=== PATIENT | female | born 1945 | race Caucasian/White ===

== ENCOUNTER 2019-01-17 09:58 | Inpatient (IN) ==
[2019-01-17] MEDS ORDERED: ONDANSETRON 4 MG/2 ML VIAL IV PRN (21:21)
[2019-01-17] MEDS ORDERED: GLUCAGON 1 MG VIAL IM PRN ×3 (21:21→21:35)
[2019-01-17] MEDS ORDERED: DEXTROSE 50% 25 GM/50 ML VIAL IV PRN ×3 (21:21→21:35)
[2019-01-17] MEDS ORDERED: tiZANidine 4 MG TABLET PO PRN (21:33)
[2019-01-17 22:07] LABS: Basophils % 0.5 % (0.0-0.8); Eosinophils # 0.2 10*3/uL (0.0-0.87); Eosinophils % 1.9 % (0.00-10.9); Hematocrit 39.2 VOL% (35.7-47.0); Hemoglobin 12.9 GM/DL (12.0-16.0); Immature Granulocytes % 0.4 %; Immature Granulocytes Absolute 0.03 #; Lymphocytes # 3.7 10*3/uL (1.4-4.0); Lymphocytes % 43.4 % (21.3-54.2); Mean Corpuscular HGB Conc 32.9 GM/DL (32-36); Mean Corpuscular Volume 89.1 FL (87-102); Mean Platelet Volume 9.6 FL (9.6-12.0); Monocytes % 6.3 % (1.7-12.7); Neutrophils % 47.5 % (38.7-73.9); Platelet Count 233 T/CUMM (130-400); Red Cell Distribution Width 14.2 % (9.3-17.3); White Blood Count 8.6 T/CUMM (4-12)
[2019-01-17] MEDS: PIPERACILLIN/TAZOBACTAM 3,375 MG in SODIUM CHLORIDE 0.9% 100 ML IV SCH (22:34)
[2019-01-17 22:39] LABS: Albumin 3.8 G/DL (3.4-5.0); Bilirubin,Total 0.4 MG/DL (0.2-1.0); Osmolality,Calculated 285.8 MOS/KG (273-304); Thyroid Stimulating Hormone 5.11 uIU/ml (0.358-3.74); Total Protein 7.2 G/DL (6.4-8.3); VLDL CHOLESTEROL 75.6 MG/DL
[2019-01-18] MEDS: VANCOMYCIN INJ 1,250 MG in SODIUM CHLORIDE 0.9% 250 ML IV SCH ×2 (02:44→13:32)
[2019-01-18 03:43] LABS: Apearance,Urine CLEAR (Clear); Bilirubin,Urine Negative (Negative); Blood, Urine Negative (Negative); Glucose,Urine (UA) Negative (Negative); Ketones,Urine Negative (Negative); Nitrite,Urine Negative (Negative); Protein,Urine Negative; RBC,Urine 1 /HPF (0-4); Squamous Epithelial Cell,Urine Occasional /HPF (0-10); Urine Color Yellow (Yellow); Urine Urobilinogen < 2.0 EU/DL (0.2-1.0)
[2019-01-18] MEDS: LEVOTHYROXINE 50 MCG TABLET PO SCH (06:24)
[2019-01-18] MEDS: PIPERACILLIN/TAZOBACTAM 3,375 MG in SODIUM CHLORIDE 0.9% 100 ML IV SCH ×3 (06:25→22:57)
[2019-01-18] MEDS: INSULIN LISPRO 100 UNIT/ML SUBCUT SCH ×4 (08:10→22:17)
[2019-01-18] MEDS ORDERED: ROSUVASTATIN 20 MG TABLET PO SCH ×2 (09:00→12:46)
[2019-01-18] MEDS: POTASSIUM CHLORIDE 20 MEQ TABLET PO SCH (09:03)
[2019-01-18] MEDS: CITALOPRAM 20 MG TABLET PO SCH (09:03)
[2019-01-18] MEDS: GABAPENTIN 600 MG TABLET PO SCH ×4 (09:03→21:44)
[2019-01-18] MEDS: oxyCODONE/ACETAMINOPHEN 5-325 MG TABLET PO SCH ×4 (09:03→20:14)
[2019-01-18] MEDS: ATENOLOL 25 MG TABLET PO SCH (09:04)
[2019-01-18] MEDS: LOSARTAN 50 MG TABLET PO SCH (09:04)
[2019-01-18] MEDS: CHLORTHALIDONE 25 MG TABLET PO SCH (09:05)
[2019-01-18] MEDS: ANASTROZOLE 1 MG TABLET PO SCH (09:05)
[2019-01-18] MEDS: PANTOPRAZOLE 40 MG TABLET PO SCH (09:05)
[2019-01-18] MEDS: amLODIPine 10 MG TABLET PO SCH (09:05)
[2019-01-18] MEDS: HEPARIN 5,000 UNIT/1 ML VIAL SUBCUT SCH ×2 (10:58→17:44)
[2019-01-18] MEDS ORDERED: metFORMIN 500 MG TABLET PO SCH (17:00)
[2019-01-18] MEDS ORDERED: CELECOXIB 100 MG CAPSULE PO SCH (21:00)
[2019-01-18] MEDS ORDERED: AMITRIPTYLINE 25 MG TABLET PO SCH (21:00)
[2019-01-18] MEDS ORDERED: ZALEPLON 5 MG CAPSULE PO SCH (21:00)
[2019-01-18] MEDS: OMEGA 3 ACID ETHYL ESTERS 1 GM CAPSULE PO SCH (21:44)
[2019-01-19] MEDS: HEPARIN 5,000 UNIT/1 ML VIAL SUBCUT SCH ×2 (03:06→09:39)
[2019-01-19] MEDS: VANCOMYCIN INJ 1,250 MG in SODIUM CHLORIDE 0.9% 250 ML IV SCH (03:08)
[2019-01-19] MEDS: LEVOTHYROXINE 50 MCG TABLET PO SCH (06:16)
[2019-01-19] MEDS: PIPERACILLIN/TAZOBACTAM 3,375 MG in SODIUM CHLORIDE 0.9% 100 ML IV SCH (06:16)
[2019-01-19 07:55] VITALS: BP 132/78
[2019-01-19] MEDS: INSULIN LISPRO 100 UNIT/ML SUBCUT SCH (08:00)
[2019-01-19] MEDS ORDERED: ROSUVASTATIN 20 MG TABLET PO SCH (09:00)
[2019-01-19] MEDS: ANASTROZOLE 1 MG TABLET PO SCH (09:35)
[2019-01-19] MEDS: OMEGA 3 ACID ETHYL ESTERS 1 GM CAPSULE PO SCH (09:35)
[2019-01-19] MEDS: LOSARTAN 50 MG TABLET PO SCH (09:35)
[2019-01-19] MEDS: GABAPENTIN 600 MG TABLET PO SCH (09:35)
[2019-01-19] MEDS: amLODIPine 10 MG TABLET PO SCH (09:35)
[2019-01-19] MEDS: PANTOPRAZOLE 40 MG TABLET PO SCH (09:36)
[2019-01-19] MEDS: POTASSIUM CHLORIDE 20 MEQ TABLET PO SCH (09:36)
[2019-01-19] MEDS: ATENOLOL 25 MG TABLET PO SCH (09:36)
[2019-01-19] MEDS: CHLORTHALIDONE 25 MG TABLET PO SCH (09:36)
[2019-01-19] MEDS: CITALOPRAM 20 MG TABLET PO SCH (09:36)
[2019-01-19] MEDS: oxyCODONE/ACETAMINOPHEN 5-325 MG TABLET PO SCH (09:36)
== END 2019-01-19 11:10 | disposition home or self-care (01) | DRG 638 ==
LOC: N.5E 18:32 → SUATTDRO 18:32
PROVIDERS: ADMIT Internal Medicine; ATTEND Internal Medicine